=== PATIENT | male | born 1975 | race Caucasian/White ===

== ENCOUNTER 2024-07-19 13:40 | Emergency (ER) | payer MEDICAID ==
[~2024-07-19] VITALS: Ht 177.8 cm; Wt 65.8 kg
[~2024-07-19 13:40] MED LIST: BENZ2TAB65 PO; CHOL400T31 PO; DIPH-954 PO; DIVA-73 PO; DOCU-405 PO; ENAL2.5T69 PO; FLUO-335 PO; METF-414 PO; RISP3TAB76 PO
[2024-07-19 13:42] VITALS: O2SAT 97
[2024-07-19 13:45] VITALS: BP 115/83; PULSE 104; RESP 16; TEMP 36.7; O2SAT 100
[2024-07-19] MEDS: ALPRAZOLAM 0.25 MG TABLET PO ONE (15:16)
[2024-07-19] MEDS: BACITRACIN ZINC OINT UDPKT TOP ONE (15:16)
[2024-07-19] MEDS: LIDOCAINE HCL/PF 1% 10 MG/ML 5ML VIAL INFIL ONE (15:16)
== END 2024-07-19 16:26 | disposition home or self-care (01) ==
LOC: ER 13:40
DX: S01.81XA Laceration without foreign body of other part of head, initial encounter (principal); E11.9 Type 2 diabetes mellitus without complications; Z79.899 Other long term (current) drug therapy; Z98.890 Other specified postprocedural states; Z86.59 Personal history of other mental and behavioral disorders; W22.8XXA Striking against or struck by other objects, initial encounter; Y93.89 Activity, other specified; Y92.89 Other specified places as the place of occurrence of the external cause; Y99.8 Other external cause status
CPT/HCPCS: 99282; 12013; J2003

== ENCOUNTER 2024-07-21 09:04 | Emergency (ER) | payer MEDICAID ==
[~2024-07-21] VITALS: Ht 175.3 cm; Wt 73.0 kg
[2024-07-21 09:09] VITALS: O2SAT 97
[2024-07-21 09:49] VITALS: BP 142/98; PULSE 81; RESP 18; TEMP 37; O2SAT 97
== END 2024-07-21 09:50 | disposition home or self-care (01) ==
LOC: ER 09:04
DX: S01.91XD Laceration without foreign body of unspecified part of head, subsequent encounter (principal); F79 Unspecified intellectual disabilities; Z79.899 Other long term (current) drug therapy; E11.9 Type 2 diabetes mellitus without complications; Z79.84 Long term (current) use of oral hypoglycemic drugs; W19.XXXD Unspecified fall, subsequent encounter
CPT/HCPCS: 99281

== ENCOUNTER 2024-07-31 12:41 | Emergency (ER) | payer MEDICAID ==
[~2024-07-31] VITALS: Ht 180.3 cm; Wt 70.0 kg
[2024-07-31 12:53] VITALS: O2SAT 98
[2024-07-31 14:52] VITALS: BP 125/92; PULSE 97; RESP 18; TEMP 36.9; O2SAT 98
== END 2024-07-31 14:53 | disposition home or self-care (01) ==
LOC: ER 12:41
DX: S01.81XD Laceration without foreign body of other part of head, subsequent encounter (principal); E11.9 Type 2 diabetes mellitus without complications; Z79.84 Long term (current) use of oral hypoglycemic drugs; Z79.899 Other long term (current) drug therapy; X58.XXXD Exposure to other specified factors, subsequent encounter
CPT/HCPCS: 99281; Z7610